=== PATIENT | female | born 2000 | race Caucasian/White ===

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

== ENCOUNTER 2021-01-04 23:29 | Emergency (ER) | payer MEDICAID, OTHER ==
[~2021-01-04] VITALS: Ht 162.6 cm; Wt 75.2 kg
[~2021-01-04 23:29] MED LIST changes: +FAMO-63 PO; +HYOS0.1265 SL; +ONDA4TAB12 PO
--- NOTE | 2021-01-04 23:59 | PHYS DOC ---
Past History Past Medical History: Asthma Additional Past Medical Histor: ectopic Past Surgical History: Tonsillectomy Additional Past Surgical Histo: HERNIA Smoking: Non-smoker Alcohol Use: None Drug Use: Marijuana Adult General Chief Complaint Chief Complaint: NAUSEA/VOMITING/DIARRHEA [facility] HPI Patient is a 20-year-old female presenting postop day 1 of cholecystectomy [facility] for nausea and vomiting. States she had an uncomplicated laparoscopic cholecystectomy yesterday and was sent home with Zofran and Percocet. She states she thinks she is reacting negatively to Percocet as she has had generalized hives with nausea and x2 episodes of nonbloody nonbilious emesis. Nothing known makes better, p.o. intake makes worse. Patient denies any pain out of proportion but does admit since she is been throwing up and not tolerating Percocet her generalized abdominal pain has been uncontrolled. She takes paroxetine for anxiety/depression but no other medications at home, she is otherwise healthy and has been at baseline health Review of Systems Review of Systems Fourteen body systems of review of systems have been reviewed. See HPI for pertinent positives and negative responses, other [place] all other systems are negative, non-pertinent or non-contributory Allergies Allergies Allergies Coded Allergies Type Severity Reaction Last Updated Verified lidocaine Allergy Intermediate 05/17/20 Yes Physical Exam Physical Exam Constitutional: Well developed, well nourished, tearful and anxious on arrival dry heaving but is overall non-toxic in appearance. HENT: Normocephalic, atraumatic, bilateral external ears normal, oropharynx moist, no oral exudates, nose normal. Eyes: PERRLA, EOMI, conjunctiva normal, no discharge. Neck: Normal range of motion, no tenderness, supple, no stridor. Cardiovascular: Heart rate regular, sinus rhythm, no murmurs rubs or gallops Lungs & Thorax: Bilateral breath sounds clear to auscultation Abdomen: Bowel sounds normal, soft, generalized tenderness with voluntary guarding, no rebound, no masses, no pulsatile masses. Nonsurgical abdomen, no peritoneal signs Skin: Warm, dry, no erythema, no rash. Well-appearing laparoscopic surgical incision sites on anterior abdomen Back: No tenderness, no CVA tenderness. Extremities: No tenderness, no cyanosis, no clubbing, ROM intact, no edema. Neurologic: Alert and oriented X 3, grossly normal motor & sensory function, no focal deficits noted. Psychologic: Anxious affect and mood Current Patient Data Vital Signs Vital Signs Date Time Temp Pulse Resp B/P (MAP) Pulse Ox O2 Delivery O2 Flow Rate FiO2 01/04/21 23:39 98.6 82 18 98 Room Air Vital Signs Date Time Temp Pulse Resp B/P (MAP) Pulse Ox O2 Delivery O2 Flow Rate FiO2 01/04/21 23:39 98.6 82 18 98 Room Air EKG EKG [] Radiology/Procedures Radiology/Procedures [] Heart Score C/O Chest Pain: No Risk Factors: Risk Factors: DM, Current or recent (<one month) smoker, HTN, HLP, family history of CAD, obesity. Risk Scores: Risk Factors: DM, Current or recent (<one month) smoker, HTN, HLP, family history of CAD, obesity. Course & Med Decision Making Course & Med Decision Making ABCs unremarkable HPI and comprehensive physical exam nonconcerning for any emergent or surgical issues No indication for further diagnostic ER workup, intervention, or hospitalization at this time Patient likely suffering from medication reaction to Percocet. IM 50 mg Benadryl administered with resolution of symptoms. Subsequent 4 mg ODT Zofran administered with improvement in nausea Joint decision made to discharge home with new prescription for [place] 7.5 with explicit instructions given on need to notify surgeon of new narcotic pre scription and safe practices with taking narcotics and safe practices when disposing of old Percocet Strict return precautions were discussed with good understanding by patient and [id number] at bedside, all questions and concerns addressed prior to dep flo [place] Disclaimer Nba Disclaimer This electronic medical record was generated, in whole or in part, using a voice recognition dictation system. Departure Departure: Impression: Primary Impression: Nausea & vomiting Additional Impression: Adverse effects of medication Disposition: HOME / SELF CARE / HOMELESS Condition: STABLE Referrals: ASHLEE GARCIA MD (PCP) Additional Instructions: As discussed prior to ER departure, your vitals and physical exam were nonconcerning for any emergent or surgical issues You were given IM 50 mg Benadryl for adverse medication reaction, likely from the Percocet You have been prescribed [place] in the past for pain and new prescription was written today for you for your postoperative pain As discussed at length, it is important for you to contact your general surgeon first thing tomorrow to notify him of your recent ER visit and need for close outpatient follow-up as indicated It is important to adhere to narcotic pain medication prescription as written as deviation from written Sigg could result in addiction, respiratory depression and even . Please dispose of your old Percocet at local pharmacy or other safe disposal area It was a pleasure to take care of you and I wish you the best going forward Scripts Hydrocodone Bit/Acetaminophen (HYDROCODONE-APAP 7.5-325 ) 1 Each Tablet 1 TAB PO PRN Q6HRS PRN for PAIN, #14 TAB 0 Refills Prov: KERVIN CHEUNG DO 01/05/21 Problem Qualifiers KERVIN CHEUNG DO Jan 04, 2021 23:59
[2021-01-05] MEDS ORDERED: diphenhydrAMINE 50 MG/ML VIAL IM ONE ×2
[2021-01-05] MEDS ORDERED: HYDROcodone/APAP 10/325 1 TAB TABLET PO ONE
[2021-01-05] MEDS ORDERED: ONDANSETRON ODT 4 MG TAB.RAPDIS ONE (00:18)
[2021-01-05 00:21] VITALS: BP 130/80
[2021-01-05] MEDS ORDERED: HYDR-2765 PO (00:24)
[2021-01-05] MEDS ORDERED: ONDANSETRON ODT 4 MG TAB.RAPDIS PO ONE (00:30)
== END 2021-01-05 00:38 | disposition home or self-care (01) ==
LOC: ER 23:29
DX: R11.2 Nausea with vomiting, unspecified (principal); T50.905A Adverse effect of unspecified drugs, medicaments and biological substances, initial encounter; J45.909 Unspecified asthma, uncomplicated; Z90.49 Acquired absence of other specified parts of digestive tract; Y92.89 Other specified places as the place of occurrence of the external cause
CPT/HCPCS: 96372; 99283; J1200; Q0162

== ENCOUNTER 2021-01-05 15:51 | Emergency (ER) | payer OTHER ==
[~2021-01-05] VITALS: Ht 162.6 cm; Wt 74.0 kg
[~2021-01-05 15:51] MED LIST changes: +HYDR-2765 PO
--- NOTE | 2021-01-05 17:03 | PHYS DOC ---
Past History Past Medical History: Asthma Additional Past Medical Histor: ectopic Past Surgical History: Cholecystectomy, Tonsillectomy Additional Past Surgical Histo: HERNIA Smoking: Non-smoker Alcohol Use: None Drug Use: Marijuana General Adult EDM: Chief Complaint: POST-OP PROBLEM HPI: HPI: Patient is a [age] year old [sex] who presents with [] Review of Systems: Review of Systems: Constitutional: Denies fever or chills Eyes: Denies change in visual acuity HENT: Denies nasal congestion or sore throat Respiratory: Denies cough or shortness of breath Cardiovascular: Denies chest pain or edema GI: Denies abdominal pain, nausea, vomiting, bloody stools or diarrhea : Denies dysuria Musculoskeletal: Denies back pain or joint pain Integument: Denies rash Neurologic: Denies headache, focal weakness or sensory changes Endocrine: Denies polyuria or polydipsia Lymphatic: Denies swollen glands Psychiatric: Denies depression or anxiety Allergies: Allergies: Allergies Coded Allergies Type Severity Reaction Last Updated Verified lidocaine Allergy Intermediate 05/17/20 Yes acetaminophen Allergy Mild Nausea and Vomiting, itching 01/05/21 Yes oxycodone Allergy Mild Nausea and Vomiting, itching 01/05/21 Yes Physical Exam: PE: Constitutional: Well developed, well nourished, no acute distress, non-toxic appearance. [] HENT: Normocephalic, atraumatic, bilateral external ears normal, oropharynx moist, no oral exudates, nose normal. [] Eyes: PERRLA, EOMI, conjunctiva normal, no discharge. [] Neck: Normal range of motion, no tenderness, supple, no stridor. [] Cardiovascular:Heart rate regular rhythm, no murmur [] Lungs & Thorax: Bilateral breath sounds clear to auscultation [] Abdomen: Bowel sounds normal, soft, no tenderness, no masses, no pulsatile masses. [] Skin: Warm, dry, no erythema, no rash. [] Back: No tenderness, no CVA tenderness. [] Extremities: No tenderness, no cyanosis, no clubbing, ROM intact, no edema. [] Neurologic: Alert and oriented X 3, normal motor function, normal sensory function, no focal deficits noted. [] Psychologic: Affect normal, judgement normal, mood normal. [] Current Patient Data: Vital Signs: Vital Signs Date Time Temp Pulse Resp B/P (MAP) Pulse Ox O2 Delivery O2 Flow Rate FiO2 01/05/21 16:06 98.4 82 18 132/77 (95) 98 Room Air EKG: EKG: [] Radiology/Procedures: Radiology/Procedures: [] Heart Score: Risk Factors: Risk Factors: DM, Current or recent (<one month) smoker, HTN, HLP, family history of CAD, obesity. Risk Scores: Score 0 - 3: 2.5% MACE over next 6 weeks - Discharge Home Score 4 - 6: 20.3% MACE over next 6 weeks - Admit for Clinical Observation Score 7 - 10: 72.7% MACE over next 6 weeks - Early Invasive Strategies Course & Med Decision Making: Course & Med Decision Making Pertinent Labs and Imaging studies reviewed. (See chart for details) [] Dragon Disclaimer: Dragon Disclaimer: This electronic medical record was generated, in whole or in part, using a voice recognition dictation system. Departure Departure: Impression: Primary Impression: Itching Additional Impression: Incisional irritation Qualified Codes: T81.89XA - Other complications of procedures, not elsewhere classified, initial encounter Disposition: HOME / SELF CARE / HOMELESS Condition: STABLE Referrals: ASHLEE GARCIA MD (PCP) Patient Instructions: Incision Care, [id number] Additional Instructions: EMERGENCY DEPARTMENT GENERAL DISCHARGE INSTRUCTIONS Thank you for coming to [facility] (ED) today and trusting us with you care. We trust that you had a positivie experience in our Emergency Department. If you wish to speak to the department management, you may call the director at [phone]. YOUR FOLLOW UP INSTRUCTIONS ARE FOLLOWS: 1. Do you have a private Doctor? If you do not have a private doctor, please ask for a resource list of physicians or clinics that may be able to assist you with follow up care. 2. The Emergency Physician has interpreted your x-rays. The X-Ray specialist will also review them. If there is a change in the findings, you will be notified in 48 hours when at all possible. 3. A lab test or culture has been done, your results will be reviewed and you will be notified if you need a change in treatment. ADDITIONAL INSTRUCTIONS AND INFORMATION: 1. Your care today has been supervised by a physician who is specially trained in emergency care. Many problems require more than one evaluation for a complete diagnosis and treatment. We recommend that you schedule your follow up appointment as recommended to ensure complete treatment of you illness or injury. If you are unable to obtain follow up care and continue to have a problem, or if your condition worsens, we recommend that you return to the ED. 2. We are not able to safely determine your condition over the phone nor are we able to give sound medical advice over the phone. For these safety reasons, if you call for medical advice we will ask you to come to the ED for further evaluation. 3. If you have any questions regarding these discharge instructions please call the ED at [phone]. SAFETY INFORMATION: In the interest of safety, wellness, and injury prevention; we encourage you to wear your sealbelt, if you smoke; quite smoking, and we encourage family to use a protective helmet for bicycling and other sporting events that present an increased risk for head injury. IF YOUR SYMPTOMS WORSEN OR NEW SYMPTOMS DEVELOP, OR YOU HAVE CONCERNS ABOUT YOUR CONDITION; OR IF YOUR CONDITION WORSENS WHILE YOU ARE WAITING FOR YOUR FOLLOW UP APPOINTMENT; EITHER CONTACT YOUR PRIMARY CARE DOCTOR, THE PHYSICIAN WHOSE NAME AND NUMBER YOU WERE GIVEN, OR RETURN TO THE ED IMMEDIATELY. MARK RODNEY APRN Jan 05, 2021 17:03
[2021-01-05 17:15] VITALS: BP 128/72
== END 2021-01-05 17:15 | disposition home or self-care (01) ==
LOC: ER 15:51
DX: L29.9 Pruritus, unspecified (principal); J45.909 Unspecified asthma, uncomplicated; F12.10 Cannabis abuse, uncomplicated; Z90.49 Acquired absence of other specified parts of digestive tract; Z88.6 Allergy status to analgesic agent; Z88.5 Allergy status to narcotic agent
CPT/HCPCS: 99281

== ENCOUNTER 2021-01-07 02:27 | Emergency (ER) | payer OTHER ==
[~2021-01-07] VITALS: Ht 162.6 cm; Wt 74.0 kg
--- NOTE | 2021-01-07 02:49 | PHYS DOC ---
Past History Past Medical History: Asthma Additional Past Medical Histor: ectopic Past Surgical History: Cholecystectomy, Tonsillectomy Additional Past Surgical Histo: HERNIA, TUBES IN EARS, ADNOIDS Smoking: Non-smoker Alcohol Use: None Drug Use: Marijuana Adult General Chief Complaint Chief Complaint: ABDOMINAL PAIN HPI HPI Patient is a 20-year-old female who presents with abdominal distention and is 3 days out from a cholecystectomy that she had at [email or web address] [place]. States that she has some generalized abdominal pain, 5 out of 10, dull and achy in nature. Denies any fevers, chest pain, shortness of breath, nausea, vomiting, dysuria, hematuria or blood in the stool. Denies any diarrhea. Review of Systems Review of Systems Review of systems otherwise unremarkable except noted in HPI Allergies Allergies Allergies Coded Allergies Type Severity Reaction Last Updated Verified lidocaine Allergy Intermediate 05/17/20 Yes acetaminophen Allergy Mild Nausea and Vomiting, itching 01/05/21 Yes oxycodone Allergy Mild Nausea and Vomiting, itching 01/05/21 Yes Physical Exam Physical Exam Constitutional: Well developed, well nourished, no acute distress, non-toxic appearance. [] HENT: Normocephalic, atraumatic, bilateral external ears normal, oropharynx moist, no oral exudates, nose normal. [] Eyes: conjunctiva normal, no discharge. [] Neck: Normal range of motion, no tenderness, supple, no stridor. [] Cardiovascular:Heart rate regular rhythm, no murmur [] Lungs & Thorax: Bilateral breath sounds clear to auscultation [] Abdomen: soft, generalized tenderness, no rebound, no guarding no masses, no pulsatile masses. [] Skin: Warm, dry, no erythema, no rash. [] Back: no CVA tenderness. [] Extremities: No tenderness, ROM intact, no edema. [] Neurologic: Alert and oriented X 3, no focal deficits noted. [] Psychologic: Affect normal, judgement normal, mood normal. [] Current Patient Data Vital Signs Vital Signs Date Time Temp Pulse Resp B/P (MAP) Pulse Ox O2 Delivery O2 Flow Rate FiO2 01/07/21 02:38 97.6 83 18 139/86 (103) 98 Room Air EKG EKG [] Radiology/Procedures Radiology/Procedures [] Heart Score C/O Chest Pain: No Risk Factors: Risk Factors: DM, Current or recent (<one month) smoker, HTN, HLP, family history of CAD, obesity. Risk Scores: Risk Factors: DM, Current or recent (<one month) smoker, HTN, HLP, family history of CAD, obesity. Course & Med Decision Making Course & Med Decision Making Patient is a 20-year-old female, status post cholecystectomy 3 days who presents with abdominal distention Vital signs not concerning. Physical exam noted above. Patient placed on the monitor with IV access established. Laboratory analysis not concerning. CT was findings of postsurgical cholecystectomy but no acute findings Discussed pain management at home. Advised to call surgeon first thing in the morning to update on ED visit Gave return precautions to the ED. Patient grateful, verbalized understanding and agreed with plan of discharge. [] Dragon Disclaimer Dragon Disclaimer This electronic medical record was generated, in whole or in part, using a voice recognition dictation system. Departure Departure: Impression: Primary Impression: Abdominal pain Disposition: HOME / SELF CARE / HOMELESS Condition: GOOD Referrals: ASHLEE GARCIA MD (PCP) Patient Instructions: Pain Medicine Instructions, Pain Relief Preoperatively and Postoperatively Additional Instructions: Thank you for coming into the emergency department tonight and allowing us to take care of you. Please read the attached information carefully to go back over some of the things we discussed. Be sure to call your surgeon first thing in the morning to update on ED visit and set up a follow-up as soon as possible. Please come back with new or concerning symptoms as discussed. Scripts Hydrocodone Bit/Acetaminophen (HYDROCODONE-APAP 5-325 ) 1 Each Tablet 1 TAB PO Q4HRS PRN for post op pain for 2 Days, #12 TAB 0 Refills Prov: RAMONITA REDDY MD 01/07/21 RAMONITA REDDY MD Jan 07, 2021 02:49
[2021-01-07] MEDS ORDERED: CONTRAST GIVEN. MC PRN (03:00)
[2021-01-07] MEDS ORDERED: IOHEXOL 300 MG/ML 75 ML VIAL. IV ONE (03:00)
[2021-01-07 03:27] LABS: CREATININE 0.8 mg/dL (0.6-1.0); GFR 92.4; POTASSIUM 3.8 mmol/L (3.5-5.1)
[2021-01-07 03:32] LABS: ALBUMIN 3.8 g/dL (3.4-5.0); ALBUMIN/GLOBULIN RATIO 1.2 (1.0-1.7); TOTAL BILIRUBIN 0.5 mg/dL (0.2-1.0)
[2021-01-07 03:39] LABS: BASO % 0 % (0-3); EOS # 0.1 x10^3/uL (0.0-0.7); EOS % 1 % (0-3); HEMOGLOBIN 14.1 g/dL (12.0-15.5); LYMPH # 2.1 x10^3/uL (1.0-4.8); LYMPH % 18 % (24-48); MEAN CORPUSCULAR HEMOGLOBIN 29 pg (25-35); MEAN CORPUSCULAR HGB CONC 34 g/dL (31-37); MEAN CORPUSCULAR VOLUME 86 fL (79-100); MONO # 0.7 x10^3/uL (0.0-1.1); MONO % 6 % (0-9); NEUT # 8.5 x10^3uL (1.8-7.7); NEUT % 75 % (31-73); PLATELET COUNT 293 x10^3/uL (140-400); RED BLOOD COUNT 4.91 x10^6/uL (3.50-5.40); RED CELL DISTRIBUTION WIDTH 13.5 % (11.5-14.5); WHITE BLOOD COUNT 11.4 x10^3/uL (4.0-11.0)
--- NOTE | 2021-01-07 03:44 | RAD ---
CT OF THE ABDOMEN AND PELVIS WITH IV CONTRAST. History: Post cholecystectomy Comparison:None. Procedure: Contiguous axial images of the abdomen and pelvis were performed after the administration of 75 cc o f Omni 300 IV contrast. Oral contrast: No. Findings: There is evidence of cholecystectomy. There is a small amount of inflammation in the gallbladder le a. There is minimal fluid at the tip of the liver. There is a small amount of free fluid in the pelvi s. The appendix is normal. The colon is mostly collapsed and not well evaluated. Liver: Unremarkable Spleen: Unremarkable Pancreas: Unremarkable Adrenal Glands: Unremarkable Kidneys: Unremarkable There is no mass or lymphadenopathy. There is no free air. There is no free fluid. The urinary bladder appears normal. Impression: 1. Postcholecystectomy findings. 2. Mild free fluid in the pelvis appears be simple fluid and could be postsurgical. Clinical correlat ion is suggested. End Impression PQRS Compliance Statement: One or more of the following individualized dose reduction techniques were utilized for this examinat ion: 1. Automated exposure control 2. Adjustment of the mA and/or kV according to patient size 3. Use of iterative reconstruction technique Electronically signed by: Nitesh Contreras III, MD (01/07/2021 3:41 AM) [facility]
[2021-01-07 03:45] LABS: BACTERIA,URINE FEW /HPF (0-FEW); BILIRUBIN,URINE NEG (NEG); CLARITY,URINE HAZY; COLOR,URINE YELLOW; GLUCOSE,URINE NEG (NEG); NITRITE,URINE NEG (NEG); SQUAMOUS EPITHELIAL CELL,UR MOD /LPF; UROBILINOGEN,URINE 0.2 mg/dL (0.2 mg/dL)
[2021-01-07] MEDS ORDERED: ONDANSETRON PF 4 MG/2 ML VIAL. IVP ONE (03:45)
[2021-01-07 03:46] LABS: U PREG PATIENT NEGATIVE (NEG)
[2021-01-07 04:14] VITALS: BP 140/73
[2021-01-07] MEDS ORDERED: HYDR-2155 PO (04:14)
[2021-01-07] MEDS ORDERED: MORPHINE SULFATE 4 MG/ML DISP.SYRIN. IV ONE (04:15)
== END 2021-01-07 04:27 | disposition home or self-care (01) ==
LOC: ER 02:27
DX: R10.84 Generalized abdominal pain (principal); R14.0 Abdominal distension (gaseous); J45.909 Unspecified asthma, uncomplicated; Z88.4 Allergy status to anesthetic agent; Z88.5 Allergy status to narcotic agent; Z88.8 Allergy status to other drugs, medicaments and biological substances
CPT/HCPCS: 36415; 74177; 80053; 81001; 81025; 83690; 85025; 87086; 96374; 96375; 99285; J2270; J2405; J3010; Q9967

== ENCOUNTER 2021-04-13 20:33 | Emergency (ER) | payer OTHER ==
[~2021-04-13] VITALS: Ht 162.6 cm; Wt 74.0 kg
[~2021-04-13 20:33] MED LIST changes: +HYDR-2155 PO
--- NOTE | 2021-04-13 21:05 | PHYS DOC ---
Past History Past Medical History: Asthma Additional Past Medical Histor: ectopic Past Surgical History: Cholecystectomy, Tonsillectomy Additional Past Surgical Histo: HERNIA, TUBES IN EARS, ADNOIDS Smoking: Non-smoker Alcohol Use: None Drug Use: Marijuana General Adult EDM: Chief Complaint: SKIN PROBLEM HPI: HPI: "... I got some discharge from my nipples.. I had studs put in and now they have discharge... the digna that put them in... said it was probably fine.. .. if they were infected to not take them out..." Patient is a 20 year old female who presents with above hx and complaints of rash with nipple discharge after placement of stainless steel nipple studs... . Patient denies any history of immunosuppression. No recent travel. No history of prior MRSA. Patient has had previous studies of the same material. Patient has had previous tattoos problems with MRSA. Patient normally healthy. Patient has not had Pneumovax but has completed COVID and flu vaccines. Review of Systems: Review of Systems: Constitutional: Denies fever or chills Eyes: Denies change in visual acuity HENT: Denies nasal congestion or sore throat Respiratory: Denies cough or shortness of breath. Complains of nipple discharge. Cardiovascular: Denies chest pain or edema GI: Denies abdominal pain, nausea, vomiting, bloody stools or diarrhea : Denies dysuria Musculoskeletal: Denies back pain or joint pain Integument: Denies rash Neurologic: Denies headache, focal weakness or sensory changes Endocrine: Denies polyuria or polydipsia Lymphatic: Denies swollen glands Psychiatric: Denies depression or anxiety Family History: Family History: Noncontributory to presentation. Current Medications: Current Meds: See nursing for home meds Allergies: Allergies: Allergies Coded Allergies Type Severity Reaction Last Updated Verified lidocaine Allergy Intermediate 05/17/20 Yes acetaminophen Allergy Mild Nausea and Vomiting, itching 01/05/21 Yes oxycodone Allergy Mild Nausea and Vomiting, itching 01/05/21 Yes Physical Exam: PE: Constitutional: Well developed, well nourished, no acute distress, non-toxic appearance. [] HENT: Normocephalic, atraumatic, bilateral external ears normal, oropharynx moist, no oral exudates, nose normal. [] Eyes: PERRLA, EOMI, conjunctiva normal, no discharge. [] Neck: Normal range of motion, no tenderness, supple, no stridor. [] Cardiovascular:Heart rate regular rhythm, no murmur [] Lungs & Thorax: Bilateral breath sounds clear to auscultation [] Abdomen: Bowel sounds normal, soft, no tenderness, no masses, no pulsatile masses. [] Bilateral nipple discharge from newly placed nipple studs Skin: Warm, dry, no erythema, no rash. Tattoos Back: No tenderness, no CVA tenderness. [] Extremities: No tenderness, no cyanosis, no clubbing, ROM intact, no edema. [] Neurologic: Alert and oriented X 3, normal motor function, normal sensory function, no focal deficits noted. [] Psychologic: Affect normal, judgement normal, mood normal. [] Current Patient Data: Vital Signs: Vital Signs Date Time Temp Pulse Resp B/P (MAP) Pulse Ox O2 Delivery O2 Flow Rate FiO2 04/13/21 20:49 98.1 74 18 124/76 (92) 100 Room Air EKG: EKG: [] Radiology/Procedures: Radiology/Procedures: [] Heart Score: C/O Chest Pain: N/A Risk Factors: Risk Factors: DM, Current or recent (<one month) smoker, HTN, HLP, family history of CAD, obesity. Risk Scores: Score 0 - 3: 2.5% MACE over next 6 weeks - Discharge Home Score 4 - 6: 20.3% MACE over next 6 weeks - Admit for Clinical Observation Score 7 - 10: 72.7% MACE over next 6 weeks - Early Invasive Strategies Course & Med Decision Making: Course & Med Decision Making Pertinent Labs and Imaging studies reviewed. (See chart for details) Patient declines removal of nipple studs. Option patient offered treatment plan of compresses of salt water or Epson salts 4 times a day and then massage topical Polysporin. If continue to have discharge may still have to have studs removed. And start on antibiotics as directed. Follow-up primary care. Return if any concerns. Impression: 1. Localized inflammation/early cellulitis nipples after implantation of nipple studs. [] Nba Disclaimer: Nba Disclaimer: This electronic medical record was generated, in whole or in part, using a voice recognition dictation system. Departure Departure: Referrals: ASHLEE GARCIA MD (PCP) Nba Disclaimer This chart was dictated in whole or in part using Voice Recognition software in a busy, high-work load, and often noisy Emergency Department environment. It may contain unintended and wholly unrecognized errors or omissions. PIPO RIDDLE MD Apr 13, 2021 21:05
== END 2021-04-13 21:35 | disposition home or self-care (01) ==
LOC: ER 20:33
DX: N61.0 Mastitis without abscess (principal); J45.909 Unspecified asthma, uncomplicated; Z88.4 Allergy status to anesthetic agent; Z88.5 Allergy status to narcotic agent; Z88.8 Allergy status to other drugs, medicaments and biological substances
CPT/HCPCS: 81025; 99282

== ENCOUNTER 2021-04-18 14:12 | Emergency (ER) | payer OTHER ==
[~2021-04-18] VITALS: Ht 162.6 cm; Wt 74.0 kg
[2021-04-18 14:12] VITALS: BP 135/82
--- NOTE | 2021-04-18 14:47 | PHYS DOC ---
Past History Past Medical History: Asthma Additional Past Medical Histor: ectopic Past Surgical History: Cholecystectomy, Tonsillectomy Additional Past Surgical Histo: HERNIA, TUBES IN EARS, ADNOIDS Smoking: Non-smoker Alcohol Use: None Drug Use: Marijuana General Adult EDM: Chief Complaint: VAGINAL BLEEDING HPI: HPI: Patient is a 20-year-old female that presents today with vaginal bleeding. Patient states her last normal menstrual period was March 19, 2021, over the weekend she did take a home test which indicated that she was , she stated this morning she got up to go the bathroom and she noticed some blood on her underwear she said she wiped and she had a little bit more blood as well, she states she called Dr. Malin, SHEAR HELPER at [facility], and he recommended that she come to the emergency department for evaluation for possible ectopic . Patient does have a past medical history of ectopic on the left side, she states that the was found in her ovary and not in her tube, she believes she still has her left ovary. Patient is a 3 para 1 AB 1. 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 denies dysuria Musculoskeletal: Denies back pain or joint pain Integument: Denies rash Neurologic: Denies headache, focal weakness or sensory changes Endocrine: Denies polyuria or polydipsia Lymphatic: Denies swollen glands Psychiatric: Denies depression or anxiety Allergies: Allergies: Allergies Coded Allergies Type Severity Reaction Last Updated Verified lidocaine Allergy Intermediate 05/17/20 Yes acetaminophen Allergy Mild Nausea and Vomiting, itching 01/05/21 Yes oxycodone Allergy Mild Nausea and Vomiting, itching 01/05/21 Yes Physical Exam: PE: Constitutional: Well developed, well nourished, no acute distress, non-toxic appearance. [] HENT: Normocephalic, atraumatic, bilateral external ears normal, oropharynx moist, no oral exudates, nose normal. [] Eyes: PERRLA, EOMI, conjunctiva normal, no discharge. [] Neck: Normal range of motion, no tenderness, supple, no stridor. [] Cardiovascular:Heart rate regular rhythm, no murmur [] Lungs & Thorax: Bilateral breath sounds clear to auscultation [] Abdomen: Bowel sounds normal, soft, no tenderness, no masses, no pulsatile masses, scant amount of vaginal bleeding noted Skin: Warm, dry, no erythema, no rash. [] Back: No tenderness, no CVA tenderness. [] Extremities: No tenderness, no cyanosis, no clubbing, ROM intact, no edema. [] Neurologic: Alert and oriented X 3, normal motor function, normal sensory function, no focal deficits noted. [] Psychologic: Affect normal, judgement normal, mood normal. [] Current Patient Data: Labs: Laboratory Tests Test 04/18/21 14:40 POC Urine HCG, Qualitative hcg positive (Negative) Vital Signs: Vital Signs Date Time Temp Pulse Resp B/P (MAP) Pulse Ox O2 Delivery O2 Flow Rate FiO2 04/18/21 14:12 97.4 80 135/82 (99) 100 04/18/21 14:12 97.4 80 16 135/82 (99) 100 Room Air EKG: EKG: [] Radiology/Procedures: Radiology/Procedures: REASON: VAG BLEEDING, POSITIVE PREG TEST PROCEDURE: TRANSVAGINAL EXAMINATION: US TRANSVAGINAL ULTRASOUND HSG, 04/18/2021 3:06 PM CLINICAL INDICATION: Vaginal bleeding, positive test. History of ectopic . TECHNIQUE: Grayscale, color and spectral Doppler ultrasound images of the pelvis via transvaginal approach. COMPARISON: None. FINDINGS: The uterus measures 8.5 x 5.9 x 5.5 cm. The endometrial stripe measures 10 mm in thickness. There is a gestational sac. No myometrial mass. The right ovary measures 5.0 x 3.1 x 2.5 cm. There is normal blood flow to the right ovary. There is a 1.8 x 1.5 x 1.7 cm isoechoic mass either in or immediately adjacent to the right ovary. The mass has a central cystic component and peripheral hyperemia. This could be a corpus luteum cyst or an ectopic . The left ovary measures 3.0 x 2.2 x 1.6 cm and has normal blood flow. Small amount of simple free fluid in the pelvis. IMPRESSION: 1. No intrauterine . 2. 1.8 cm mass with peripheral hyperemia either in or immediately adjacent to the right ovary. This could be a corpus luteum cyst or an ectopic . Correlate with serial beta hCG and short interval follow-up ultrasound. FOR INTERNAL CODING PURPOSES Critical result: Findings discussed with ELE RAUSCH APRN at 04/18/2021 4:09 PM. RESULT CODE: (C) [] Heart Score: C/O Chest Pain: N/A Risk Factors: Risk Factors: DM, Current or recent (<one month) smoker, HTN, HLP, family history of CAD, obesity. Risk Scores: Score 0 - 3: 2.5% MACE over next 6 weeks - Discharge Home Score 4 - 6: 20.3% MACE over next 6 weeks - Admit for Clinical Observation Score 7 - 10: 72.7% MACE over next 6 weeks - Early Invasive Strategies Course & Med Decision Making: Course & Med Decision Making Pertinent Labs and Imaging studies reviewed. (See chart for details) [address] Jean Marie Malin, SHEAR HELPER system integration engineer at [facility], regarding this patient, he reviewed entirety of the emergency department work-up and recommended that patient follow-up on Friday for further evaluation. No emergency indications for surgery or transfer at this time patie nt is hemodynamically stable. Did speak to patient at length regarding following up with Dr. Malin on Friday and the importance of following up, did inform her that if she continues to have increased vaginal bleeding right-sided lower abdominal pain that worsens in any way that she should go to the emergency department for further evaluation. Patient verbalized understanding of this and is agreeable to the plan of care. Dragon Disclaimer: Dragon Disclaimer: This electronic medical record was generated, in whole or in part, using a voice recognition dictation system. Departure Departure: Impression: Primary Impression: Qualified Codes: Z3A.01 - Less than 8 weeks gestation of Additional Impression: Ovarian mass, right Disposition: HOME / SELF CARE / HOMELESS Condition: STABLE Referrals: ASHLEE GARCIA MD (PCP) JEAN MARIE MALIN MD Patient Instructions: Additional Instructions: Today your beta hCG was 318 Follow-up with Dr. Malin tomorrow by phone for an appointment on Friday for another blood draw for another beta hCG Return to the emergency department for increased vaginal bleeding or increased abdominal pain especially on the right side. ELE RAUSCH APRN Apr 18, 2021 14:47
[2021-04-18 15:10] LABS: BASO % 1 % (0-3); EOS # 0.1 x10^3/uL (0.0-0.7); EOS % 2 % (0-3); HEMATOCRIT 42.6 % (36.0-47.0); HEMOGLOBIN 14.6 g/dL (12.0-15.5); LYMPH % 27 % (24-48); MEAN CORPUSCULAR HEMOGLOBIN 29 pg (25-35); MEAN CORPUSCULAR HGB CONC 34 g/dL (31-37); MEAN CORPUSCULAR VOLUME 86 fL (79-100); MONO # 0.4 x10^3/uL (0.0-1.1); MONO % 6 % (0-9); NEUT # 4.8 x10^3uL (1.8-7.7); NEUT % 65 % (31-73); PLATELET COUNT 291 x10^3/uL (140-400); RED BLOOD COUNT 4.98 x10^6/uL (3.50-5.40); RED CELL DISTRIBUTION WIDTH 14.5 % (11.5-14.5); WHITE BLOOD COUNT 7.3 x10^3/uL (4.0-11.0)
[2021-04-18 15:29] LABS: CLARITY,URINE CLEAR; COLOR,URINE YELLOW; GLUCOSE,URINE NEG (NEG); UROBILINOGEN,URINE 0.2 mg/dL (0.2 mg/dL)
[2021-04-18 15:30] LABS: BACTERIA,URINE FEW /HPF (0-FEW); NITRITE,URINE NEG (NEG); SQUAMOUS EPITHELIAL CELL,UR FEW /LPF
--- NOTE | 2021-04-18 16:14 | RAD ---
EXAMINATION: US TRANSVAGINAL ULTRASOUND HSG, 04/18/2021 3:06 PM CLINICAL INDICATION: Vaginal bleeding, positive test. History of ectopic . TECHNIQUE: Grayscale, color and spectral Doppler ultrasound images of the pelvis via transvaginal bubba heath. COMPARISON: None. FINDINGS: The uterus measures 8.5 x 5.9 x 5.5 cm. The endometrial stripe measures 10 mm in thickness. There is a gestational sac. No myometrial mass. The right ovary measures 5.0 x 3.1 x 2.5 cm. There is normal blood flow to the right ovary. There is a 1.8 x 1.5 x 1.7 cm isoechoic mass either in or immediately adjacent to the right ovary. The mass ceballos s a central cystic component and peripheral hyperemia. This could be a corpus luteum cyst or an ectop ic . The left ovary measures 3.0 x 2.2 x 1.6 cm and has normal blood flow. Small amount of simple free fluid in the pelvis. IMPRESSION: 1. No intrauterine . 2. 1.8 cm mass with peripheral hyperemia either in or immediately adjacent to the right ovary. This c ould be a corpus luteum cyst or an ectopic . Correlate with serial beta hCG and short interv al follow-up ultrasound. FOR INTERNAL CODING PURPOSES Critical result: Findings discussed with ELE RAUSCH APRN at 04/18/2021 4:09 PM. RESULT CODE: (C) Electronically signed by: Sophia Byrne MD (04/18/2021 4:12 PM) [id number]
== END 2021-04-18 16:54 | disposition home or self-care (01) ==
LOC: ER 14:12
DX: O34.81 Maternal care for other abnormalities of pelvic organs, first trimester (principal); N83.8 Other noninflammatory disorders of ovary, fallopian tube and broad ligament; O99.511 Diseases of the respiratory system complicating pregnancy, first trimester; J45.909 Unspecified asthma, uncomplicated; Z3A.08 8 weeks gestation of pregnancy; Z88.4 Allergy status to anesthetic agent; Z88.5 Allergy status to narcotic agent; Z88.8 Allergy status to other drugs, medicaments and biological substances
CPT/HCPCS: 36415; 76817; 81001; 81025; 84702; 85025; 86850; 86900; 86901; 99284